=== PATIENT | male | born 1975 | race Caucasian/White ===

== ENCOUNTER → 2023-06-06 10:01 | Outpatient (REF) | payer OTHER, SELFPAY | LOC: HWRAD 10:01 | PROVIDERS: ATTENDING PHYSICIAN Physician Assistant Medical; FAMILY PHYSICIAN Family Medicine | DX: K20.0 Eosinophilic esophagitis (principal) | CPT/HCPCS: 71260; Q9967 ==

== ENCOUNTER 2024-01-01 13:06 | Emergency (ER) | payer OTHER, SELFPAY ==
[2024-01-01 13:08] VITALS: BP 154/97
[2024-01-01 13:12] VITALS: BP 154/97
--- NOTE | 2024-01-01 13:17 | ED.GENMED ---
History of Present Illness
General
Chief Complaint: Allergic Reaction
Source: patient
Exam Limitations: none
Time Seen by Provider: 01/01/24 13:16
Nursing documentation reviewed up to this point in time: agreed with
History of Present Illness
History of Present Illness:
48 y/o male with a PMH of asthma, dog/cat allergy presents to the emergency department today with concerns of an allergic reaction. Patient reports that he has an allergy to cats and also receives allergy shots once a month. He has received this
seems shot for many years and only had a reaction of hives once in the past, many years ago. Patient reports that today when he was going to get his shot, he was leaving the office when he started to develop hives, chest tightness, some wheezing,
and scratchy sensation in the back of the throat. He also got numbness and tingling in his lips and his tongue. He states that he then used his EpiPen and states that after using this, he was driving and started to develop fast heart rate and so
he pulled over. He was noticed by the police who recommended emergency department evaluation to monitor for allergic rebound. He states that he also took Benadryl and Zyrtec at the time and states that now his rash is largely resolved and he no
longer has scratchy sensation in his throat or any other symptoms other than some mild tightness in his chest which she notes is much improved than before. Patient denies any difficulty swallowing. Patient reports that his EpiPen's at home are
and is requesting refill. Patient administered his EpiPen around an hour and 20 minutes ago
Past History
Past History
ED Past Medical History: Asthma, GERD and Other (Gastritis)
ED Past Surgical History: None
Social History
Tobacco: Non-smoker
Alcohol: None
Drug: None
Personal:
Living: with family
Employment: Employed ( 'Desk job ')
Review of Systems
Review of Systems
All Other Systems: ROS reviewed and negative except as documented in HPI and ROS
Phy Exam
Physical Exam
Physical Exam:
General: Patient is well appearing and in no acute distress; non-toxic
Skin: Warm and dry, small area of scattered urticaria on the right lower abdomen. No other rashes or lesions
Head: Normocephalic, atraumatic
Eyes: Sclera non-icteric. EOMs intact. PERRLA.
Mouth: No intra-oral lesions, uvula midline with no uvular edema, no pharyngeal erythema
Cardiac: Regular rate and rhythm, no murmurs
Peripheral Vascular: No lower extremity swelling or edema
Pulm: Normal respiratory effort, no wheezes
Neuro: CN II-XII intact, no focal neurologic deficits.
Psychiatric: Appropriate mood and affect.
Course
Vital Signs
Initial and Last Documented VS:
Initial Vital Signs
Temp Pulse Resp BP Pulse Ox
98.7 F 104 22 154/97 98
01/01/24 13:08 01/01/24 13:08 01/01/24 13:08 01/01/24 13:08 01/01/24 13:08
Last Documented Vital Signs
Temp Pulse Resp BP Pulse Ox
98.2 F 90 16 154/97 98
01/01/24 13:12 01/01/24 13:12 01/01/24 13:12 01/01/24 13:12 01/01/24 13:12
MDM/Problems Addressed
Differential Diagnosis Includes:
ddx include allergy shot reaction, asthma, contact dermatitis, anaphylaxis
MDM/Problems Addressed:
48-year-old male history of asthma, allergy to dogs and cats presents emergency department today following allergic reaction occurring immediately after receiving one of his allergy shots today. Patient usually receives his allergy shots once a
month. Patient follows with Dr. Riddhi Blanton and independent [facility] in [place]. Patient reports that he subsequently started to develop chest tightness, urticaria, numbness and tingling in his tongue and lips as well as a scratchy
feeling in the back of his throat. Patient states that he subsequently took an EpiPen, Zyrtec and Benadryl and his symptoms resolved. Patient does note some mild tightness in his chest but as no clear wheezing on exam. Did offer him DuoNeb
treatment, patient declines at this time. He also has some scattered small areas of urticaria on his right lower abdomen but no other rashes or lesions. He has no uvular edema or pharyngeal erythema. Patient did take his EpiPen around an hour and
20 minutes prior to arrival to the emergency department and was observed in emergency department for around an additional 45 minutes. Patient not have acute worsening recurrence of his symptoms. Discussed monitoring his symptoms at home and
returning immediately or calling 911 should he develop return of his symptoms. Discussed follow-up with his housekeeping manager. Patient stable for discharge. EpiPen prescription sent.
Chronic conditions affecting care:
asthma, allergies
Acute Exacerbation and/or Progression of Chronic Illness:
asthma, allergies
*Pulse Oximetry
Patient hypoxic: no
*Critical Care Note
Total Time (30-74mins, 75-104mins- exclusive of procedures): Not Applicable
Data Reviewed
Review of Other/Old Records Reveals: Records (reviewed ER physician documentation from 07/22/20, patient seen for asthma negative workup)
Source: patient and records
Prescriptions/Medications Considered But Not Given:
n/a
Further Testing Considered But Not Given:
n/a
Patient Management
Escalation/DeEscalation of care consider admission/obs:
Patient stable for discharge. Reviewed case with my attending
ED Attending Note
-
Portions of this chart may have been created with voice recognition software.� Occasional wrong word or��sound alike� substitutions may have occurred due to the inherent limitations of voice recognition software.
Discharge Plan
Departure
Patient Disposition: Home (Routine Discharge)
Date of Disposition: 01/01/24
Time of Disposition: 14:06
Patient with high blood pressure during this ER visit?: Yes
Condition: Good
Discharge Problem:
Allergic reaction
Prescriptions:
New
epinephrine 0.3 mg/0.3 mL auto-injector
0.3 ml IM ONCE Qty: 2 0RF
No Action
omeprazole 40 MG capsule,delayed release(DR/EC)
40 mg PO DAILY
fluticasone propionate [Flovent Diskus] 250 MCG blister with device
1 puff inhalation BID
cetirizine 10 MG tablet
10 mg PO DAILY
famotidine 20 MG tablet
20 mg PO DAILY
Bupropion HCl
300 mg PO DAILY
hydrocodone-acetaminophen [[place]] 1 EACH tablet
1 ea PO Q6HPRN PRN (Reason: pain) Qty: 10 0RF
Referrals:
Althea Johnson DO [Family Provider] -
Activity Restrictions/Additional Instructions:
Please call your housekeeping manager to let them know you were seen here in the emergency department and schedule a follow up appointment.
EpiPens have been sent to your pharmacy.
Please return emergency department should you experience shortness of breath, chest tightness, throat swelling, throat pain, trouble swallowing, abdominal pain, fevers or chills, recurrence of her symptoms, or any other signs or symptoms concerning
to you.
Interventions
Interventions:
*Risk Screen - Suicide Last Done: 01/01/24 14:33
*Neglect/Abuse Screening Last Done: 01/01/24 14:33
ED- Fall Risk Assessment Last Done: 01/01/24 14:00
*Nursing Disposition Last Done: 01/01/24 14:33
ED- Cardiac Assessment Last Done: 01/01/24 14:00
ED- Pulmonary Assessment Last Done: 01/01/24 14:00
ED-Skin Assessment Last Done: 01/01/24 14:33
Discharge Date and Time
Discharge Date/Time: 01/01/24 14:33
Print Language: SOU[place]UD[place]
== END 2024-01-01 14:33 | disposition home or self-care (01) ==
LOC: EMR 13:06
PROVIDERS: EMERGENCY PHYSICIAN Emergency Medicine; FAMILY PHYSICIAN Family Medicine
DX: R00.0 Tachycardia, unspecified (principal); J45.909 Unspecified asthma, uncomplicated; R07.89 Other chest pain; L50.0 Allergic urticaria; T50.905A Adverse effect of unspecified drugs, medicaments and biological substances, initial encounter
CPT/HCPCS: 99283

== ENCOUNTER → 2024-03-24 13:02 | Outpatient (REF) | payer OTHER, SELFPAY | LOC: RAD 13:02 | PROVIDERS: ATTENDING PHYSICIAN Otolaryngology | DX: R06.1 Stridor (principal) | CPT/HCPCS: 70491; Q9967 ==

== ENCOUNTER 2024-09-19 08:24 | Emergency (ER) | payer OTHER, SELFPAY ==
[2024-09-19 08:28] VITALS: BP 163/101
[2024-09-19 08:46] LABS: % Immature Granulocytes 0.2 % (0-0.5); % Lymphocytes 15.5 % (20.5-51.1); % Monocytes 5.7 % (1.7-9.3); % Neutrophils 75.6 % (42.2-75.2); Absolute Basophils 0.1 10^3/uL (0-0.2); Absolute Eosinophils 0.2 10^3/uL (0-0.7); Absolute Lymphocytes 1.2 10^3/uL (1.2-3.4); Absolute Monocytes 0.5 10^3/uL (0.1-0.6); Absolute Neutrophils 6.1 10^3/uL (1.4-6.5); Hematocrit 44.4 % (39.0-52.0); Hemoglobin 15.3 g/dL (13.0-18.0); Mean Corp Hgb Conc. 34.5 g/dL (33.0-37.0); Mean Corpuscular Hgb 30.3 pg (27.0-31.0); Mean Corpuscular Volume 87.9 fL (80.0-94.0); Mean Platelet Volume 9.2 fL (7.4-10.4); Nucleated Red Blood Cells % 0 % (-); Platelet Count 398 10^3/uL (130-400); Red Blood Cell Count 5.05 10^6/uL (4.70-6.10); Red Cell Dist. Width 12.6 % (11.5-14.5)
[2024-09-19 09:06] LABS: ALT (SGPT) 24 U/L (0-50); AST (SGOT) 17 U/L (17-59); Albumin 4.4 g/dl (3.5-5.0); Alkaline Phosphatase 56 U/L (38-126); Blood Urea Nitrogen 24 mg/dl (9-20); Calcium 8.9 mg/dl (8.4-10.2); Carbon Dioxide 24 mmol/L (22-30); Chloride 109 mmol/L (98-107); Glucose 115 mg/dl (70-99); Potassium 4.8 mmol/L (3.5-5.1); Sodium 139 mmol/L (135-145); Total Bilirubin 0.5 mg/dl (0.2-1.3); Total Protein 7.1 g/dl (6.3-8.2); eGFR > 60.00
[2024-09-19 09:17] LABS: Troponin I < 0.012 ng/ml
--- NOTE | 2024-09-19 09:36 | ED.GENMED ---
History of Present Illness
General
Chief Complaint: Chest Pain
Source: patient
Exam Limitations: none
Time Seen by Provider: 09/19/24 09:20
History of Present Illness
History of Present Illness:
See MDM
Past History
Past History
ED Past Medical History: Asthma, GERD and Other (Gastritis)
ED Past Surgical History: None
Social History
Tobacco: Non-smoker
Alcohol: None
Drug: None
Personal:
Living: with family
Employment: Employed ( 'Desk job ')
Phy Exam
Physical Exam
Physical Exam:
See MDM
Scores
Heart Score for Chest Pain Patients
STEMI patient?: No
History: Slightly or Non-Suspicious
ECG: Normal
Age: >45 - <65 years
Risk Factors: 1 or 2 Risk Factors
Troponin: </= Normal Limit
Heart Score for Chest Pain Patients: 2
Heart Score Risk: 2.5% MACE over next 6 weeks
Course
Orders/Labs/Results
Orders:
Orders
09/19/24 08:30
Electrocardiogram (*1) Urgent
Reason for Study: Chest Pain
EKG- Treatment ONCE
09/19/24 08:31
CXR2 [CR Chest - 2 Views ] Urgent
Comment:
Reason For Exam: pain
09/19/24 08:41
Complete Blood Count/With Diff Urgent
Comprehensive Metabolic Panel Urgent
Troponin I Urgent
Abnormal Lab Results
09/19/24
08:41
Neutrophils % 75.6 H %
(42.2-75.2)
Lymphocytes % 15.5 L %
(20.5-51.1)
Chloride 109 H mmol/L
(98-107)
BUN 24 H mg/dl
(9-20)
Glucose 115 H mg/dl
(70-99)
09/19/24 08:41
09/19/24 08:41
Vital Signs
Initial and Last Documented VS:
Initial Vital Signs
Temp Pulse Resp BP Pulse Ox
98.8 F 87 16 163/101 98
09/19/24 08:28 09/19/24 08:28 09/19/24 08:09/19/24 08:28 09/19/24 08:28
Last Documented Vital Signs
Temp Pulse Resp BP Pulse Ox
98.8 F 87 16 163/101 98
09/19/24 08:09/19/24 08:09/19/24 08:28 09/19/24 08:09/19/24 08:28
MDM/Problems Addressed
Differential Diagnosis Includes:
HPI and MDM Narrative:
49-year-old male presenting with relatively constant chest pressure for the past 2 days. Patient does acknowledge this could be reflux since he has significant history of reflux but was concerned it could be cardiac. Symptoms are not worse with
exertion. On my exam, he is well-appearing and nontoxic. Heart regular in rhythm and lungs clear. Abdomen soft and nontender. He has no leg edema to suspect DVT. He is not tachycardic.
Chest x-ray clear. EKG nonischemic. Troponin negative. Given negative workup with duration of symptoms, doubt ACS. Discussed outpatient follow-up with cardiology and patient feels comfortable going home
Physical exam
General: Well appearing and non-toxic
HEENT: protecting airway
Neck: appears supple
CV: No evidence of cyanosis. Regular rate and rhythm
Resp: No accessory muscle use. Lungs clear
Abd: Non-distended and nontender
Extremities: No deformities. No unilateral leg edema or erythema
Neuro: alert
Psych: Normal affect
Skin: Intact
Problems Addressed including Acute and Chronic Conditions affecting care:
1. Chest pressure
Acuity: acute
Prognosis: stable
Details: Given his history, likely GI related. Given negative workup with duration of symptoms, doubt ACS
Differential Diagnosis (but not limited to): Esophagitis, reflux disease, peptic ulcer disease
Testing considered: Second troponin
Drug therapy (if applicable): OTC meds, please see d/c instruction regarding Rx drugs
Amount and/or Complexity of Data Reviewed
Clinical info obtained from: Patient
External data reviewed: N/A
Labs I independently reviewed (but not limited to): Troponin negative
Radiology: X-ray independently reviewed: Chest x-ray clear
Pulse Ox: not hypoxic
EKG independently reviewed: Normal sinus rhythm, normal axis, no STEMI
Wet Char Conveyor Tender: N/A
Critical Care: N/A
Risk of Complication:
Social Determinants of health: Good social support
Discussed with other providers: N/A
Escalation of Care includes Admit/Obs: After being observed in the Emergency Department, pt stable for discharge.
Occasional wrong word or 'sound a like' substitutions may have occurred due to the inherent limitations of voice recognition software. Read the chart carefully and recognize, using context, where substitutions have occurred.
*Pulse Oximetry
SaO2: 98
Oxygen Mode of Delivery: Room air
Patient hypoxic: no
*Critical Care Note
Total Time (30-74mins, 75-104mins- exclusive of procedures): Not Applicable
ED Attending Note
-
Portions of this chart may have been created with voice recognition software.� Occasional wrong word or��sound alike� substitutions may have occurred due to the inherent limitations of voice recognition software.
Discharge Plan
Departure
Patient Disposition: Home (Routine Discharge)
Date of Disposition: 09/19/24
Time of Disposition: 09:36
Patient with high blood pressure during this ER visit?: Yes
Discharge Problem:
Chest pressure
Instructions: Chest Pain PCP Follow Up
Prescriptions:
No Action
omeprazole 40 MG capsule,delayed release(DR/EC)
40 mg PO DAILY
fluticasone propionate [Flovent Diskus] 250 MCG blister with device
1 puff inhalation BID
cetirizine 10 MG tablet
10 mg PO DAILY
famotidine 20 MG tablet
20 mg PO DAILY
Bupropion HCl
300 mg PO DAILY
hydrocodone-acetaminophen [[place]] 1 EACH tablet
1 ea PO Q6HPRN PRN (Reason: pain) Qty: 10 0RF
epinephrine 0.3 mg/0.3 mL auto-injector
0.3 ml IM ONCE Qty: 2 0RF
Referrals:
Mac Sanchez MD [Active, Cardiology]
Walter Mandujano Jr., DO [Family Provider, Internal Medicine]
Activity Restrictions/Additional Instructions:
Please return for any worsening symptoms.
You may return at any time if you have further concerns.
Please follow up with your doctor at the first available appointment, preferably this week.
Please make an appointment to see the hospital internship.
Thank you for choosing [facility].
Interventions
Interventions:
*Risk Screen - Suicide Last Done: 09/19/24 08:28
*Neglect/Abuse Screening Last Done: 09/19/24 08:28
Discharge Date and Time
Print Language: [place]
[2024-09-19 09:41] VITALS: BMI 27.0
[2024-09-19 09:44] VITALS: BP 119/86
== END 2024-09-19 09:48 | disposition home or self-care (01) ==
LOC: EMR 08:24
PROVIDERS: Emergency Medicine; EMERGENCY PHYSICIAN Student in an Organized Health Care Education/Training Program; FAMILY PHYSICIAN Family Medicine
DX: R07.89 Other chest pain (principal); R03.0 Elevated blood-pressure reading, without diagnosis of hypertension; J45.909 Unspecified asthma, uncomplicated; K21.9 Gastro-esophageal reflux disease without esophagitis; Z88.6 Allergy status to analgesic agent; Z88.0 Allergy status to penicillin
CPT/HCPCS: 99283; 71046; 80053; 84484; 85025; 93005